=== PATIENT | male | born 1950 | race Caucasian/White ===

== ENCOUNTER 2017-11-18 16:37 | Emergency (ER) | payer SELFPAY ==
[~2017-11-18] VITALS: Ht 177.8 cm; Wt 75.0 kg
[2017-11-18 16:46] VITALS: BP 158/81; PULSE 70; RESP 16; TEMP 99.2; O2SAT 99
--- NOTE | 2017-11-18 18:01 | PD ---
HPI Chief Complaint: ENT Complaint Time Seen by Provider: 17:51 Travel History International Travel<30 days: No Contact w/Intl Traveler<30days: No Traveled to known affect area: No History of Present Illness HPI 67-year-old male here with "clogged ear". He reports symptoms have been present for 5 months. Symptom severity is mild. No aggravating or alleviating factors. PFSH Past Medical History Medical History: Denies Significant Hx Diminished Hearing: No Tetanus Vaccination: Unknown Past Surgical History Surgical History: No Previous Surgery Social History Alcohol Use: Yes (VERY RARE) Tobacco Use: No Substance Use: No Allergies-Medications (Allergen,Severity, Reaction): Coded Allergies: No Known Allergies (Unverified , 11/18/17) Reported Meds & Prescriptions Reported Meds & Active Scripts Active No Active Prescriptions or Reported Medications Review of Systems Except as stated in HPI: all other systems reviewed are Neg Physical Exam Narrative GENERAL: Alert well-appearing male. SKIN: Warm and dry. HEAD: Normocephalic. EYES: No scleral icterus. No injection or drainage. Ears: Left ear total cerumen impaction. No mastoid tenderness. NECK: Supple, trachea midline. No JVD or lymphadenopathy. Data Data Last Documented VS Vital Signs Date Time Temp Pulse Resp B/P (MAP) Pulse Ox O2 Delivery O2 Flow Rate FiO2 11/18/17 16:46 99.2 70 16 158/81 (106) 99 Orders Orders Ear Irrigation (11/18/17 17:55) MDM Medical Decision Making Medical Screen Exam Complete: Yes Emergency Medical Condition: Yes Differential Diagnosis Cerumen impaction, otitis media, other Narrative Course 67-year-old male here with left cerumen impaction. The ear be irrigated by ER staff. He is instructed to follow-up with his primary doctor. Diagnosis Primary Impression: Cerumen impaction Qualified Codes: H61.22 - Impacted cerumen, left ear Referrals: Primary Care Physician Scripts No Active Prescriptions or Reported Meds Disposition: 01 DISCHARGE HOME Condition: Stable Bronwyn Manley Nov 18, 2017 18:01
== END 2017-11-18 18:32 | disposition home or self-care (01) ==
LOC: PHEFT 16:37
DX: H61.22 Impacted cerumen, left ear (principal)
CPT/HCPCS: 99283